=== PATIENT | female | born 1960 | race Two or more races ===

== ENCOUNTER → 2020-10-29 | Outpatient (CLI) | payer MEDICARE | END | disposition home or self-care (01) | LOC: CFH 12:12 | PROVIDERS: ATTEND Family Medicine | DX: Z12.31 Encounter for screening mammogram for malignant neoplasm of breast (principal); Z12.39 Encounter for other screening for malignant neoplasm of breast; D83.9 Common variable immunodeficiency, unspecified | CPT/HCPCS: 76641; 77063; 77067 ==

== ENCOUNTER 2020-11-01 17:03 | Emergency (ER) | payer MEDICARE ==
[~2020-11-01] VITALS: Ht 165.1 cm; Wt 64.8 kg
--- NOTE | 2020-11-01 17:46 | NUR ---
PT HAS IMMINUGLOBULIN INFUSIONS WEEKLY. AFTER YESTERDAYS INFUSION, PT HAD PAIN AND SWELLING. SWELLING INCREASING WARM TO TOUCH. PT CONNECTED TO MONITORING. CALL LIGHT IN REACH.
--- NOTE | 2020-11-01 19:04 | NUR ---
PT BACK FROM US. LAB NOTIFIED OF PT RETURN.
--- NOTE | 2020-11-01 19:06 | NUR ---
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
[2020-11-01 19:27] LABS: BASOPHILS % (AUTO) 1 % (0-1); EOSINOPHILS % (AUTO) 3 % (1-7); LYMPHOCYTES % (AUTO) 19 % (22-44); MEAN CORPUSCULAR HEMOGLOBIN 36.5 pg (27.0-34.8); MEAN CORPUSCULAR HGB CONC 34.5 g/dL (32.4-35.8); MEAN PLATELET VOLUME 7.3 fL (7.4-10.4); MONOCYTES % (AUTO) 7 % (2-9); NEUTROPHILS % (AUTO) 70 % (42-75); PLATELET COUNT 313 x10^3/uL (130-400); RED BLOOD COUNT 3.71 x10^6/uL (3.82-5.3); RED CELL DISTRIBUTION WIDTH 14.1 % (9.6-15.2)
[2020-11-01 19:28] VITALS: BP 112/76
[2020-11-01 19:28] LABS: MD NO
[2020-11-01 19:30] LABS: ALBUMIN 3.4 g/dL (3.4-5.0); ANION GAP 6 mmol/L (5-15); CALCIUM 8.3 mg/dL (8.5-10.1); CHLORIDE 109 mmol/L (98-107); CREATININE 0.76 mg/dL (0.55-1.02)
--- NOTE | 2020-11-01 19:33 | NUR ---
ALL RESULTS ARE BACK AT THIS TIME. CHART UP FOR RECHECK.
== END 2020-11-01 20:52 | disposition home or self-care (01) ==
LOC: ED 20:44
DX: I80.8 Phlebitis and thrombophlebitis of other sites (principal)
CPT/HCPCS: 36415; 80048; 82040; 85025; 99284